=== PATIENT | female | born 1985 | race Caucasian/White ===

== ENCOUNTER 2016-07-23 11:56 | Emergency (ER) | payer MEDICAID ==
[~2016-07-23] VITALS: Ht 157.5 cm; Wt 72.7 kg
[2016-07-23 12:00] VITALS: BP 147/85; TEMP 98.7
[2016-07-23] MEDS ORDERED: WELLBUTRIN XL300 M1 PO (12:03)
[2016-07-23] MEDS ORDERED: STRATTERA100 MG PO (12:04)
[2016-07-23] MEDS ORDERED: DESYREL 100MG100 MG PO (12:04)
[2016-07-23 13:22] LABS: INFLUENZA B NEGATIVE
[2016-07-23] MEDS ORDERED: PREDNISONE20 MG PO (13:35)
[2016-07-23] MEDS ORDERED: ZITHROMAX Z PA250 MG PO (13:35)
[2016-07-23] MEDS ORDERED: PROAIR HFA0.09 MG/AC IH (13:35)
[2016-07-23 13:45] VITALS: PULSE 120
== END 2016-07-23 13:45 | disposition home or self-care (01) ==
LOC: COL.ER 11:56
PROVIDERS: Nurse Practitioner
DX: J45.901 Unspecified asthma with (acute) exacerbation (principal)
CPT/HCPCS: J7512

== ENCOUNTER 2016-12-11 19:29 | Emergency (ER) | payer MEDICAID ==
[~2016-12-11] VITALS: Ht 157.5 cm; Wt 81.8 kg
[~2016-12-11 19:29] MED LIST: DESYREL 100MG100 MG PO; PREDNISONE20 MG PO; PROAIR HFA0.09 MG/AC IH; STRATTERA100 MG PO; WELLBUTRIN XL300 M1 PO; ZITHROMAX Z PA250 MG PO
[2016-12-11 19:34] VITALS: BP 128/91; TEMP 98.9
[2016-12-11] MEDS ORDERED: LEXAPRO20 MG PO (19:38)
[2016-12-11] MEDS ORDERED: LATUDA40 MG PO (19:38)
[2016-12-11] MEDS ORDERED: ZYRTEC 10MG10 MG PO (19:39)
[2016-12-11] MEDS ORDERED: MINIPRESS2 MG PO (19:39)
[2016-12-11] MEDS ORDERED: NAPROSYN 2250 MG/TAB PO (19:39)
[2016-12-11] MEDS ORDERED: PROAIR HFA0.09 MG/AC IH (19:40)
[2016-12-11] MEDS ORDERED: FLONASEALLERGY NS (19:40)
[2016-12-11] MEDS ORDERED: FLOVENT 44MCG I13 GM IH (19:40)
[2016-12-11 20:31] LABS: AMPHETAMINE URINE NEGATIVE; BARBITURATES URINE NEGATIVE; BENZODIAZEPINES URINE NEGATIVE; BUPRENORPHINE URINE NEGATIVE; METHADONE URINE NEGATIVE; OPIATES URINE NEGATIVE; OXYCODONE URINE NEGATIVE; PHENCYCLIDINE URINE NEGATIVE; PROPOXYPHENE URINE NEGATIVE; THC CANNABINOIDS URINE NEGATIVE
[2016-12-11 20:48] VITALS: PULSE 86
== END 2016-12-11 20:53 | disposition home or self-care (01) ==
LOC: COL.ER 19:29
PROVIDERS: Physician Assistant
DX: Z02.83 Encounter for blood-alcohol and blood-drug test (principal)

== ENCOUNTER 2016-12-27 11:39 | Emergency (ER) | payer MEDICAID ==
[~2016-12-27] VITALS: Ht 157.5 cm; Wt 84.1 kg
[~2016-12-27 11:39] MED LIST changes: +FLONASEALLERGY NS; +FLOVENT 44MCG I13 GM IH; +LATUDA40 MG PO; +LEXAPRO20 MG PO; +MINIPRESS2 MG PO; +NAPROSYN 2250 MG/TAB PO; +ZYRTEC 10MG10 MG PO
[2016-12-27 11:45] VITALS: TEMP 99.3
[2016-12-27] MEDS ORDERED: TOPAMAX50 MG PO (12:05)
[2016-12-27] MEDS ORDERED: KLONOPIN 0.5MG0.5 MG PO (12:06)
[2016-12-27 13:50] VITALS: BP 118/61; PULSE 90
== END 2016-12-27 13:50 | disposition home or self-care (01) ==
LOC: COL.ER 11:39
DX: G43.909 Migraine, unspecified, not intractable, without status migrainosus (principal); R00.0 Tachycardia, unspecified; F31.9 Bipolar disorder, unspecified; F43.10 Post-traumatic stress disorder, unspecified; F17.210 Nicotine dependence, cigarettes, uncomplicated
CPT/HCPCS: J1200; J1885; J2765; J7030

== ENCOUNTER 2017-01-27 10:44 | Emergency (ER) | payer MEDICAID ==
[~2017-01-27] VITALS: Ht 157.5 cm; Wt 81.8 kg
[~2017-01-27 10:44] MED LIST changes: +KLONOPIN 0.5MG0.5 MG PO; +TOPAMAX50 MG PO
[2017-01-27 10:50] VITALS: BP 108/75; TEMP 98.7
[2017-01-27 12:35] VITALS: PULSE 96
== END 2017-01-27 12:33 | disposition home or self-care (01) ==
LOC: COL.ER 10:44
DX: S91.202A Unspecified open wound of left great toe with damage to nail, initial encounter (principal); W22.8XXA Striking against or struck by other objects, initial encounter; F32.9 Major depressive disorder, single episode, unspecified

== ENCOUNTER 2017-06-14 12:14 | Emergency (ER) | payer MEDICAID ==
[~2017-06-14] VITALS: Ht 157.5 cm; Wt 81.8 kg
[2017-06-14 12:16] VITALS: TEMP 98.5
[2017-06-14] MEDS ORDERED: AMITRIPTYLINE H50 M1 PO (12:33)
[2017-06-14] MEDS ORDERED: SINGULAIR 110 MG/TAB PO (12:34)
[2017-06-14] MEDS ORDERED: EFFEXOR 75M75 MG/TAB PO (12:34)
[2017-06-14] MEDS ORDERED: NORCO 325 MG-51 TAB PO (14:04)
[2017-06-14 14:17] VITALS: BP 142/80; PULSE 112
[2017-06-14] MEDS ORDERED: CRUTCHES MC (16:11)
== END 2017-06-14 14:17 | disposition home or self-care (01) ==
LOC: COL.ER 12:14
DX: S92.341A Displaced fracture of fourth metatarsal bone, right foot, initial encounter for closed fracture (principal); F32.9 Major depressive disorder, single episode, unspecified; F41.9 Anxiety disorder, unspecified; W17.89XA Other fall from one level to another, initial encounter; Y92.410 Unspecified street and highway as the place of occurrence of the external cause
CPT/HCPCS: J3010

== ENCOUNTER 2017-07-28 20:30 | Emergency (ER) | payer MEDICAID ==
[~2017-07-28] VITALS: Ht 154.9 cm; Wt 73.6 kg
[~2017-07-28 20:30] MED LIST changes: +AMITRIPTYLINE H50 M1 PO; +CRUTCHES MC; +EFFEXOR 75M75 MG/TAB PO; +NORCO 325 MG-51 TAB PO; +SINGULAIR 110 MG/TAB PO
[2017-07-28 20:32] VITALS: BP 139/84; PULSE 111; TEMP 97.9
[2017-07-28 21:55] LABS: BASO % 0.2 % (0.0-2.0); EOS % 0.2 % (0-4.0); GRAN # 9.9 (1.4-6.5); GRAN % 71.7 % (42.2-75.2); HEMATOCRIT 41.5 % (37.0-47.0); HEMOGLOBIN 13.5 g/dl (12.5-16.0); LYMPH # 3.2 (1.2-3.4); LYMPH % 22.9 % (20.0-51.0); MEAN CELL VOLUME 91 fl (80.0-100.0); MEAN CORPUSCULAR HEMOGLOBIN 30 pg (27.0-31.0); MEAN CORPUSCULAR HGB CONC 33 g/dl (33.0-37.0); MEAN PLATELET VOLUME 9.1 fl (7.4-10.4); MONO # 0.6 (0.1-0.6); MONO % 4.7 % (1.7-9.3); PLATELET COUNT 301 K/mm3 (130-400); RED BLOOD COUNT 4.55 M/mm3 (4.10-5.30); REDCELL DISTRIBUTION WIDTH-CV 12.7 % (11.5-14.5)
[2017-07-28 22:05] LABS: ALBUMIN 4.5 gm/dL (3.5-5.0); BILIRUBIN,TOTAL 0.2 mg/dL (0.0-1.0); CALCIUM 9.8 mg/dL (8.4-10.2); CREATININE, serum 0.5 mg/dL (0.52-1.25); POTASSIUM 3.9 mmol/L (3.4-5.0); TOTAL PROTEIN 7.6 gm/dL (6.4-8.2)
[2017-07-28 22:19] LABS: ERYTHROCYTE SEDIMENTATION RATE 7 mm/hr (0-20)
[2017-07-28] MEDS ORDERED: DOXYCYCLINE 10100 MG PO (22:21)
[2017-07-28] MEDS ORDERED: CEPHALEXIN500 M1 PO (22:21)
== END 2017-07-29 01:06 | disposition home or self-care (01) ==
LOC: COL.ER 20:30
PROVIDERS: Emergency Medicine
DX: L03.114 Cellulitis of left upper limb (principal); I80.8 Phlebitis and thrombophlebitis of other sites; F12.90 Cannabis use, unspecified, uncomplicated
CPT/HCPCS: J2405; J2550